=== PATIENT | female | born 1945 | race Caucasian/White ===

== ENCOUNTER 2019-09-09 11:42 | Inpatient (IN) | payer MEDICARE ==
[~2019-09-09] VITALS: Ht 152.4 cm; Wt 74.6 kg
--- NOTE | 2019-09-09 11:58 | NUR ---
Dr. Ray at bedside.
[2019-09-09] MEDS ORDERED: ipratropium/albuterol 3ml nebule ONE (11:59)
[2019-09-09] MEDS ORDERED: methylPREDNISolone sod succ 125mg/2ml vial IV ONE (12:00)
[2019-09-09] MEDS ORDERED: ipratropium/albuterol 3ml nebule NEB ONE (12:00)
[2019-09-09 12:05] LABS: MEAN CORPUSCULAR HEMOGLOBIN 15.8 PG (27.0-31.0); MEAN CORPUSCULAR HGB CONC 28.7 g/dL (33.0-36.5); MEAN PLATELET VOLUME 8.8 FL (7.4-10.4); PLATELET COUNT 633 X10'3 (140-440); WHITE BLOOD COUNT 9.6 X10'3 (4.5-11.0)
[2019-09-09 12:09] LABS: HEMOGLOBIN 6.3 g/dl (12.0-16.0)
[2019-09-09] MEDS ORDERED: albuterol 2.5 MG/3 ML nebule CONTNEB PRN (12:25)
[2019-09-09 12:27] LABS: PLATELET ESTIMATE INCREASED; TOTAL CELLS COUNTED 100
[2019-09-09 12:28] LABS: ALANINE AMINOTRANSFERASE 19 U/L (12-78); ALBUMIN/GLOBULIN RATIO 0.6 (1.1-1.5); ALKALINE PHOSPHATASE 244 IU/L (46-116); ANION GAP 17 (8-16); ANISOCYTOSIS 3+; ASPARTATE AMINO TRANSFERASE 19 U/L (10-37); BILIRUBIN,TOTAL 0.5 MG/DL (0.1-1.0); BLOOD UREA NITROGEN 32 MG/DL (7-18); BUN/CREATININE RATIO 17.9 (6.6-38.0); CHLORIDE 110 MMOL/L (99-107); CREATININE 1.79 MG/DL (0.40-0.90); GIANT PLATELET FEW; GLUCOSE 148 MG/DL (70-104); HYPOCHROMASIA 1+; MICROCYTOSIS 3+; POIKILOCYTOSIS 1+; POTASSIUM 3.6 MMOL/L (3.5-5.1); SODIUM 141 MMOL/L (135-145); eGFR 28 ML/MIN
[2019-09-09 12:29] LABS: LARGE PLATELETS MODERATE; POLYCHROMASIA FEW
[2019-09-09 12:30] LABS: TOTAL CARBON DIOXIDE 13.6 MMOL/L (24-32)
[2019-09-09 12:33] LABS: PARTIAL THROMBOPLASTIN TIME 32 SECONDS (22-32)
--- NOTE | 2019-09-09 12:54 | NUR ---
PT DAUGHTER CALLED RUTH ANN PACHECO [phone], STATED PT HAS BENINNGING STAGES OF DEMENTIA. PT LIVES WITH GRANDDAUGHTER ARGENIS PACHECO [phone]. PT AGREES TO GIVE INFOR TO BOTH DAUGHTER AND GRANDAUGHTER WHEN THEY CALL. DAUGHTER REQUESTS TO HAVE DC WITH HOME NEBULIZER. WILL PASS ON TO PRIMARY NURSE.
[2019-09-09] MEDS ORDERED: ASPI-1264 PO (12:58)
--- NOTE | 2019-09-09 13:19 | NUR ---
PAGED RT FOR ABG [phone]
[2019-09-09] MEDS ORDERED: pantoprazole 40 MG vial IV ONE (13:20)
[2019-09-09 13:47] LABS: OCCULT BLOOD STOOL POSITIVE (Neg)
[2019-09-09 13:51] LABS: ABG BASE EXCESS -13.9 mmol/L (-2.0-3.0); ABG HCO3 9.2 mmol/L (22.0-26.0); ABG OXYGEN SATURATION 98.1 % (95-98); ABG PCO2 (T) 14.6 mmHg (35.0-45.0); ABG PO2 (T) 112.5 mmHg (83-108); ALLEN'S TEST POSITIVE; FCOHb 1.1 % (0.5-1.5); FMetHb 0.2 % (0.3-1.12); FO2Hb 96.8 % (94-100); TOTAL HEMOGLOBIN 6.7 G/dl (12.0-16.0)
[2019-09-09] MEDS ORDERED: albuterol 2.5 MG/3 ML nebule NEB PRN (14:10)
[2019-09-09] MEDS ORDERED: ondansetron/PF 4mg/2ml inj IV PRN (14:10)
[2019-09-09] MEDS ORDERED: potassium CL 10mEq/100ml bag 100 ML IV PRN ×2 (14:10)
[2019-09-09] MEDS ORDERED: potassium Cl 20 mEq SR tablet PO PRN ×2 (14:10)
[2019-09-09] MEDS ORDERED: magnesium 2GM in 50ml NS 50 ML IV PRN (14:10)
[2019-09-09] MEDS ORDERED: magnesium 4gm in 100ml NS 100 ML IV PRN (14:10)
[2019-09-09] MEDS ORDERED: magnesium Cl slow-release 64mg tablet PO PRN (14:10)
[2019-09-09 14:28] VITALS: BP 119/97
[2019-09-09 14:54] VITALS: BP 130/56
[2019-09-09 15:54] VITALS: BP 107/87
[2019-09-09] MEDS: normal saline 1000ml 1,000 ML IV SCH (15:57)
--- NOTE | 2019-09-09 16:24 | NUR ---
RESPIRATORY PAGED 2ND TIME
[2019-09-09] MEDS: albuterol 2.5 MG/3 ML nebule NEB PRN (16:32)
[2019-09-09] MEDS ORDERED: levalbuterol 0.63mg/3ml nebule IH PRN (16:50)
[2019-09-09 16:54] VITALS: BP 161/77
--- NOTE | 2019-09-09 17:29 | NUR ---
JUANAGRAY OROS [phone] has the original advance directive for the pt, she said that she gave a copy to someone at the front attendant. she is not the pt's daughter just a friend.
[2019-09-09] MEDS: LORazepam 2 mg/ml vial IV PRN ×2 (17:42→22:27)
--- NOTE | 2019-09-09 17:53 | NUR ---
Pt still with increased work of breathing, sats 97% on RA. Ativan 1mg given. Pt is refusing her breathing treatment, keeps taking it off. Spoke to Dr Muñiz, stated to put pt on Bipap. Respiratory paged.
[2019-09-09 18:00] VITALS: BP 159/78
[2019-09-09] MEDS ORDERED: furosemide 40mg/4ml inj ONE (18:44)
[2019-09-09] MEDS ORDERED: furosemide 20 MG/2 ML vial IV ONE ×2 (18:45→19:10)
--- NOTE | 2019-09-09 18:59 | NUR ---
Rapid reponse called due to increased work of breathing, tachycardia, tachypnea.
--- NOTE | 2019-09-09 18:59 | NUR ---
Problems reprioritized. Patient report given, questions answered & plan of care reviewed with Allie.
[2019-09-09] MEDS ORDERED: morphine 2 MG/ML inj. syringe IV ONE (19:10)
[2019-09-09] MEDS ORDERED: morphine 4 MG/ML inj SYRINge ONE (19:11)
[2019-09-09 19:26] LABS: ABG BASE EXCESS -17.2 mmol/L (-2.0-3.0); ABG HCO3 9.4 mmol/L (22.0-26.0); ABG OXYGEN SATURATION 98.3 % (95-98); ABG PCO2 (T) 25.7 mmHg (35.0-45.0); ABG PO2 (T) 147.8 mmHg (83-108); ALLEN'S TEST POSITIVE; FMetHb 0.4 % (0.3-1.12); FO2Hb 97.9 % (94-100); PATIENT TEMPERATURE 37.6; RESPIRATORY RATE 12 b/min; TOTAL HEMOGLOBIN 8.6 G/dl (12.0-16.0)
[2019-09-09] MEDS: levalbuterol 0.63mg/3ml nebule IH SCH ×2 (19:46→23:25)
[2019-09-09] MEDS: budesonide 0.5mg/2ml UD nebule IH SCH (19:46)
[2019-09-09] MEDS: K and/or MAG REPLACEMENT MC SCH (20:00)
[2019-09-09] MEDS ORDERED: methylPREDNISolone sod succ/PF 40mg inj. IV ONE (20:00)
[2019-09-09] MEDS ORDERED: levalbuterol 0.63mg/3ml nebule IH SCH (20:00)
[2019-09-09 20:35] LABS: HEMATOCRIT 26.1 % (35.0-45.0); MEAN CORPUSCULAR HGB CONC 30.5 g/dL (33.0-36.5); MEAN CORPUSCULAR VOLUME 59.1 FL (78-98); PLATELET COUNT 609 X10'3 (140-440); RED BLOOD COUNT 4.42 X10'6 (4.20-5.60); RED CELL DISTRIBUTION WIDTH 29.7 % (11.5-14.5); WHITE BLOOD COUNT 19.7 X10'3 (4.5-11.0)
[2019-09-09 20:49] LABS: % IRON SATURATION 2 % (11-46); IRON 8 UG/DL (49-151); TOTAL IRON BINDING CAPACITY 445 UG/DL (259-388)
[2019-09-09 20:55] LABS: ABG BASE EXCESS -16.4 mmol/L (-2.0-3.0); ABG HCO3 8.8 mmol/L (22.0-26.0); ABG OXYGEN SATURATION 97.3 % (95-98); ABG PO2 (T) 111.1 mmHg (83-108); ALLEN'S TEST POSITIVE; FMetHb 0.3 % (0.3-1.12); PATIENT TEMPERATURE 37.2; RESPIRATORY RATE 18 b/min; TOTAL HEMOGLOBIN 8.4 G/dl (12.0-16.0)
[2019-09-09] MEDS ORDERED: sodium bicarbonate (8.4%) 1 mEq/ml syringe IV ONE (21:05)
--- NOTE | 2019-09-09 21:05 | NUR ---
PAGER ID: [phone] MESSAGE: Sveta Diaz 73P 6331D pt admitted with SOB/anemia, pt new ABG bicarb 8.8 and CO2 19.8 which are both down from the one drawn at 1900 bicarb 9.4 and CO2 25, what do you think about giving bicarb? thank you Allie CARY 8416
--- NOTE | 2019-09-09 21:32 | NUR ---
PAGER ID: [phone] MESSAGE: Sveta Hughes 73F admitted with anemia, SOB pt family mentioned possible aspirin OD, can I get a tox screen and CT head for possible brain bleeding please? thank you Allie del castillo [phone]
[2019-09-09 22:00] VITALS: BP 143/86
--- NOTE | 2019-09-09 22:10 | NUR ---
PAGER ID: [phone] MESSAGE: Sveta Ellen 73F admitted with anemia/SOB you ordered bicarb amp did you want bicarb GTT and for ingestion error for aspirin salicylate for labs please? thank you Allie del castillo [phone]
[2019-09-09] MEDS: sodium bicarbonate (8.4%) inj. 50 MEQ in dextrose 5%-water 1,000 ML IV SCH (22:52)
--- NOTE | 2019-09-09 23:57 | NUR ---
PAGER ID: [phone] MESSAGE: Sveta Diaz 73F admitted with anemia/SOB salicylate is 47.7 which is doubled indicating she OD on aspiration, also her trop came back 0.92. thank you Allie CARY 6343
[2019-09-10] VITALS (9 sets, daily range): BP systolic 99–138; BP diastolic 48–82
--- NOTE | 2019-09-10 00:22 | NUR ---
PAGER ID: [phone] MESSAGE: Sveta Diaz 73F called and discussed situation with posion control, they stated to do salicylate lab every two hours along with running 40meq of K. thank you Allie del castillo 2129
[2019-09-10] MEDS: Potassium Cl inj 40 MEQ in normal saline 1000ml 980 ML IV SCH ×2 (01:19→11:36)
[2019-09-10 02:26] LABS: BASOPHILS # (AUTO) 0.1 X10'3 (0-0.2); BASOPHILS % (AUTO) 0.3 % (0-1); EOSINOPHILS % (AUTO) 0.1 % (0-6); HEMATOCRIT 23.9 % (35.0-45.0); HEMOGLOBIN 7.2 g/dl (12.0-16.0); LYMPHOCYTES # (AUTO) 0.4 X10'3 (1.1-4.8); LYMPHOCYTES % (AUTO) 1.7 % (21-51); MEAN CORPUSCULAR HEMOGLOBIN 18.3 PG (27.0-31.0); MEAN CORPUSCULAR VOLUME 60.9 FL (78-98); MONOCYTES # (AUTO) 1.6 X10'3 (0-0.9); MONOCYTES % (AUTO) 7.1 % (2-12); NEUTROPHILS # (AUTO) 20.5 X10'3 (1.8-7.7); NEUTROPHILS % (AUTO) 90.8 % (42-75); PLATELET COUNT 541 X10'3 (140-440); RED BLOOD COUNT 3.92 X10'6 (4.20-5.60); RED CELL DISTRIBUTION WIDTH 30.6 % (11.5-14.5); WHITE BLOOD COUNT 22.5 X10'3 (4.5-11.0)
[2019-09-10 02:31] LABS: ALBUMIN 2.7 G/DL (3.4-5.0); ANION GAP 21 (8-16); BLOOD UREA NITROGEN 43 MG/DL (7-18); BUN/CREATININE RATIO 16.9 (6.6-38.0); CALCIUM 7.1 MG/DL (8.5-10.1); CHLORIDE 107 MMOL/L (99-107); CREATININE 2.54 MG/DL (0.40-0.90); GLUCOSE 350 MG/DL (70-104); MAGNESIUM 2.5 MG/DL (1.5-2.4); POTASSIUM 4.4 MMOL/L (3.5-5.1); SODIUM 141 MMOL/L (135-145); eGFR 18 ML/MIN
--- NOTE | 2019-09-10 02:38 | NUR ---
PAGER ID: [phone] MESSAGE: Sveta Emily 73S 5052I salicylate is trending now was 47.7 now 44.4, Hemoglobin on the other hand was 8.0 at 1999 last night and is now 7.2, and this is after receiving 1 unit RBC yesterday thank you Allie del castillo [phone]
--- NOTE | 2019-09-10 02:45 | NUR ---
promotional table spacer PAGER ID: [phone] MESSAGE: Sveta Diaz 73P 3014L CO2 on chem panel is 13 thank you Allie del castillo [phone]
[2019-09-10] MEDS: levalbuterol 0.63mg/3ml nebule IH SCH ×6 (02:49→22:41)
--- NOTE | 2019-09-10 03:32 | NUR ---
promotional table spacer PAGER ID: [phone] MESSAGE: Can you please call me referring pt Sveta Hughes 8043C thank you Allie del castillo [phone]
[2019-09-10 04:35] LABS: MICROCYTOSIS 2+; PLATELET ESTIMATE INCREASED; POLYCHROMASIA 1+; TOTAL CELLS COUNTED 100
[2019-09-10 04:36] LABS: LARGE PLATELETS MODERATE
[2019-09-10 04:37] LABS: ANISOCYTOSIS 3+; POIKILOCYTOSIS FEW
[2019-09-10 04:38] LABS: ELLIPTOCYTES FEW; HYPOCHROMASIA 2+; TEAR DROP CELLS FEW
[2019-09-10 05:23] LABS: HEMATOCRIT 22.6 % (35.0-45.0); MEAN CORPUSCULAR HEMOGLOBIN 17.8 PG (27.0-31.0); MEAN CORPUSCULAR HGB CONC 29.7 g/dL (33.0-36.5); MEAN CORPUSCULAR VOLUME 59.8 FL (78-98); MEAN PLATELET VOLUME 8.9 FL (7.4-10.4); PLATELET COUNT 480 X10'3 (140-440); RED BLOOD COUNT 3.79 X10'6 (4.20-5.60); RED CELL DISTRIBUTION WIDTH 30.5 % (11.5-14.5); WHITE BLOOD COUNT 21.4 X10'3 (4.5-11.0)
[2019-09-10 05:32] LABS: HEMOGLOBIN 6.7 g/dl (12.0-16.0)
--- NOTE | 2019-09-10 05:34 | NUR ---
PAGER ID: [phone] MESSAGE: Sveta Emily 22 6123B Hemoglobin 6.7 thank you Allie CARY 6381
--- NOTE | 2019-09-10 06:38 | NUR ---
Patient in room PCU 3009. I have received report from Allie CARY and had the opportunity to ask questions and assume patient care.
[2019-09-10] MEDS: budesonide 0.5mg/2ml UD nebule IH SCH ×2 (07:07→20:05)
[2019-09-10] MEDS: K and/or MAG REPLACEMENT MC SCH ×2 (08:10→20:00)
[2019-09-10] MEDS ORDERED: fentaNYL/PF 50MCG/1 ML 2ML syringe ONE (08:48)
[2019-09-10] MEDS ORDERED: LIDOcaine Viscous 15ml cup ONE (08:48)
[2019-09-10] MEDS ORDERED: MIDAZolam 5mg/5ml vial ONE (08:48)
--- NOTE | 2019-09-10 08:57 | NUR ---
Page to Mary Kay ID: [phone] MESSAGE: Bessy MARYLOU. Patient Diaz 3009. Troponin bryan to 0.92, can she still go to GI lab for EGD? Please advise
--- NOTE | 2019-09-10 09:50 | NUR ---
ID: [phone] MESSAGE: Bessy MARYLOU. Patient Diaz 3009. Troponin bryan to 0.92, can she still go to GI lab for EGD? Please advise
[2019-09-10] MEDS: sodium bicarbonate (8.4%) inj. 50 MEQ in dextrose 5%-water 1,000 ML IV SCH ×2 (10:06→20:30)
[2019-09-10] MEDS ORDERED: levoFLOXACIN-Levaquin 500mg/D5 100 ML IV SCH (10:50)
[2019-09-10 11:17] LABS: HEMATOCRIT 24.2 % (35.0-45.0); HEMOGLOBIN 7.2 g/dl (12.0-16.0); MEAN CORPUSCULAR HEMOGLOBIN 18.7 PG (27.0-31.0); MEAN CORPUSCULAR HGB CONC 29.8 g/dL (33.0-36.5); MEAN CORPUSCULAR VOLUME 62.6 FL (78-98); MEAN PLATELET VOLUME 8.8 FL (7.4-10.4); PLATELET COUNT 487 X10'3 (140-440); RED BLOOD COUNT 3.87 X10'6 (4.20-5.60); RED CELL DISTRIBUTION WIDTH 32.8 % (11.5-14.5); WHITE BLOOD COUNT 21.3 X10'3 (4.5-11.0)
--- NOTE | 2019-09-10 12:02 | NUR ---
Phone call from Poison control. Recommend to continue ASA level checks q2h until reaches 30, then can D/C bicarb and move to NS. Will continue to monitor.
--- NOTE | 2019-09-10 12:26 | NUR ---
Page to VIRIDIANA PAGER ID: [phone] MESSAGE: Bessy HICKMAN 6219. Patient Diaz 3009. Did you want this patient on Protonix? Saw in your note, but its been D/Cd. Please advise.
--- NOTE | 2019-09-10 12:27 | NUR ---
New orders from Mary Kay, Protonix 40mg BID
--- NOTE | 2019-09-10 12:41 | NUR ---
Page to VIRIDIANA PAGER ID: [phone] MESSAGE: Bessy MARYLOU 6242. Patient Diaz 6619. The solumedrol also was D/C' looks like. Did you want her to have it?
[2019-09-10] MEDS: pantoprazole 40 MG vial IV SCH ×2 (12:46→20:30)
--- NOTE | 2019-09-10 13:48 | NUR ---
New order from Dr. Muñiz: Solumedrol 40 mg BID to start now
[2019-09-10] MEDS: methylPREDNISolone sod succ/PF 40mg inj. IV SCH ×2 (14:03→20:49)
[2019-09-10 17:09] LABS: HEMATOCRIT 25.6 % (35.0-45.0); HEMOGLOBIN 7.9 g/dl (12.0-16.0); MEAN CORPUSCULAR HEMOGLOBIN 19.6 PG (27.0-31.0); MEAN CORPUSCULAR HGB CONC 30.9 g/dL (33.0-36.5); MEAN CORPUSCULAR VOLUME 63.5 FL (78-98); MEAN PLATELET VOLUME 9.2 FL (7.4-10.4); PLATELET COUNT 479 X10'3 (140-440); RED BLOOD COUNT 4.03 X10'6 (4.20-5.60); RED CELL DISTRIBUTION WIDTH 34.5 % (11.5-14.5); WHITE BLOOD COUNT 22.1 X10'3 (4.5-11.0)
--- NOTE | 2019-09-10 18:35 | NUR ---
Problems reprioritized. Patient report given, questions answered & plan of care reviewed with Maggi CARY. Patient stable at transfer of care.
--- NOTE | 2019-09-10 18:35 | NUR ---
Patient in room PCU 3009. I have received report from Hali, and had the opportunity to ask questions and assume patient care.
--- NOTE | 2019-09-10 18:35 | NUR ---
Page to JAN PAGER ID: [phone] MESSAGE: Bessy HICKMAN 4853. Patient Aguilar 3015B. Patient's BP is 197/71. Will give PM Coreg at 1900 per order.
--- NOTE | 2019-09-10 18:36 | NUR ---
Problems reprioritized. Patient report given, questions answered & plan of care reviewed with Ajay CARY. Patient stable at transfer of care.
--- NOTE | 2019-09-10 19:04 | NUR ---
PAGER ID: [phone] MESSAGE: Sveta Diaz 73 F Rm 3004, admitted for COPD exacerbation w hx of COPD, smoker, s/p 2PRBC transfusion in the last 2 days, with Hemoglobin of 7.9. Salicylates overdose ( level is 30.3), EGD Cancelled. Needs diet. Huy pcu-[id number]
--- NOTE | 2019-09-10 19:33 | NUR ---
PAGER ID: [phone] MESSAGE: Sveta Diaz 73 F Rm 3008, admitted for COPD. Patient's salicylates level is 28.3. K level is 4.4. CO2 level is 13.0 on 3L NC O@. Possible EGD tomorrow. NPO@ MN? Salicylates check q2hr, Continue? on KCl IV, Continue? Huy [id number]-[id number] Addendum: 09/10/19 at 1947 by Ajay Esquivel RN Dr. Crook called back and ordered to stop the KCL IV, and recheck the salicylate level q 6hr. NPO after midnight for possible EGD.
--- NOTE | 2019-09-10 21:22 | NUR ---
PAGER ID: [phone] MESSAGE: Sveta Diaz 73 F Rm 3001, admitted for COPD. Patient's salicylates level is 28.3. Poison control called and want her off sodium bicarb, She is on NS at 20ml/hr. Do you want to change IVF rate and DC Sodium Bicarb? Huy PCU 5441 Addendum: 09/10/19 at 2128 by Ajay Esquivel RN Dr. Crook called back, and ordered to DC the Sodium bicarbonate drip and change the patients NS from 20 ml/hr to 75 ml/hr. No other orders were given at this time.
--- NOTE | 2019-09-10 22:26 | NUR ---
paged RT: Sveta Diaz 73 F Rm 5860. SOB in mid 80's. Asking for RT treatment and to be put on BiPAP ANN-MARIE.
[2019-09-10] MEDS: normal saline 1000ml 1,000 ML IV SCH (22:33)
--- NOTE | 2019-09-10 22:49 | NUR ---
patient noncompliant to get orthostatic vitals at this time. Will try to get at 0200. Patient is getting breathing treatment, O2 sat at 92 right now. RT at the bedside. Patient Start on BiPAP.
[2019-09-10] MEDS: LORazepam 2 mg/ml vial IV PRN (23:16)
[2019-09-10 23:35] LABS: HEMATOCRIT 27.7 % (35.0-45.0); HEMOGLOBIN 8.4 g/dl (12.0-16.0); MEAN CORPUSCULAR HEMOGLOBIN 19.3 PG (27.0-31.0); MEAN CORPUSCULAR HGB CONC 30.2 g/dL (33.0-36.5); MEAN PLATELET VOLUME 8.8 FL (7.4-10.4); PLATELET COUNT 529 X10'3 (140-440); RED BLOOD COUNT 4.33 X10'6 (4.20-5.60); RED CELL DISTRIBUTION WIDTH 34.8 % (11.5-14.5); WHITE BLOOD COUNT 22.7 X10'3 (4.5-11.0)
[2019-09-10 23:46] LABS: ALBUMIN 2.5 G/DL (3.4-5.0); ANION GAP 17 (8-16); BLOOD UREA NITROGEN 35 MG/DL (7-18); BUN/CREATININE RATIO 21.1 (6.6-38.0); CALCIUM 8.4 MG/DL (8.5-10.1); CHLORIDE 113 MMOL/L (99-107); CREATININE 1.66 MG/DL (0.40-0.90); GLUCOSE 170 MG/DL (70-104); POTASSIUM 3.9 MMOL/L (3.5-5.1); SODIUM 145 MMOL/L (135-145); eGFR 30 ML/MIN
[2019-09-10 23:52] LABS: TOTAL CARBON DIOXIDE 14.6 MMOL/L (24-32)
--- NOTE | 2019-09-10 23:53 | NUR ---
Patient is noncompliant with BiPAP. Taking it off without calling us. Charge Nurse-An is aware of the issue.
--- NOTE | 2019-09-10 23:57 | NUR ---
RT paged: Emily Bangura 45h [phone] @[facility]. Noncompliant with BiPAP. SOB, may need high flow NC.
--- NOTE | 2019-09-11 00:16 | NUR ---
PAGER ID: [phone] MESSAGE: Sveta Diaz 73 F Rm 3000, admitted for COPD exacerbation w hx of COPD, smoker. Has a Critical CO2 value of 14.6, perv one was 13.0. Salicylate level is 25.6, perv one was 28.3. Huy pcu-7125
--- NOTE | 2019-09-11 01:00 | NUR ---
PAGER ID: [phone] MESSAGE: Sveta Diaz 73 F Rm 3007, admitted for COPD exacerbation w hx of COPD, smoker with CO2 14.6. Has unstable O2 Sat between 76--86. Pt. refused the BiPAP. On 5L O2 NC.1mg Atvian given earlier. Recommendation? AOx4. Huy, PCU-[id number]
[2019-09-11] MEDS ORDERED: LORazepam 2 mg/ml vial IV ONE (01:25)
[2019-09-11 02:00] VITALS: BP 147/88
--- NOTE | 2019-09-11 02:04 | NUR ---
Patient is alert, oriented x4, but noncompliant and does not follow commands. takes off the NC, still restless despite giving her 1mg ativan. Dr. Crook is aware the issue.
[2019-09-11] MEDS: levalbuterol 0.63mg/3ml nebule IH SCH ×3 (04:08→11:01)
--- NOTE | 2019-09-11 04:28 | NUR ---
Patient received breathing treatment. On BiPAP with FIO2 of 35. feeling better. Not complaining of any pain at this time.
--- NOTE | 2019-09-11 05:34 | NUR ---
Patient on BiPAP with FIO2 of 35. Resting at this time, not on any distress or pain.
[2019-09-11 06:16] LABS: BASOPHILS # (AUTO) 0.1 X10'3 (0-0.2); BASOPHILS % (AUTO) 0.6 % (0-1); EOSINOPHILS % (AUTO) 0 % (0-6); HEMATOCRIT 28.8 % (35.0-45.0); HEMOGLOBIN 8.6 g/dl (12.0-16.0); LYMPHOCYTES % (AUTO) 24.8 % (21-51); MEAN CORPUSCULAR HEMOGLOBIN 19.4 PG (27.0-31.0); MEAN CORPUSCULAR VOLUME 64.4 FL (78-98); MEAN PLATELET VOLUME 8.6 FL (7.4-10.4); MONOCYTES # (AUTO) 0.8 X10'3 (0-0.9); MONOCYTES % (AUTO) 3.4 % (2-12); NEUTROPHILS # (AUTO) 17.2 X10'3 (1.8-7.7); NEUTROPHILS % (AUTO) 71.2 % (42-75); PLATELET COUNT 548 X10'3 (140-440); RED BLOOD COUNT 4.47 X10'6 (4.20-5.60); RED CELL DISTRIBUTION WIDTH 35.2 % (11.5-14.5); WHITE BLOOD COUNT 24.2 X10'3 (4.5-11.0)
--- NOTE | 2019-09-11 06:17 | NUR ---
Problems reprioritized. Patient report given to Hali, questions answered & plan of care reviewed with .
[2019-09-11 06:27] LABS: ALBUMIN 2.5 G/DL (3.4-5.0); ANION GAP 16 (8-16); BLOOD UREA NITROGEN 33 MG/DL (7-18); BUN/CREATININE RATIO 22.4 (6.6-38.0); CHLORIDE 115 MMOL/L (99-107); CREATININE 1.47 MG/DL (0.40-0.90); GLUCOSE 154 MG/DL (70-104); MAGNESIUM 2.5 MG/DL (1.5-2.4); POTASSIUM 4.2 MMOL/L (3.5-5.1); SODIUM 147 MMOL/L (135-145); TOTAL CARBON DIOXIDE 15.8 MMOL/L (24-32); eGFR 35 ML/MIN
--- NOTE | 2019-09-11 06:35 | NUR ---
Patient in room PCU 3009. I have received report from Ajay CARY and had the opportunity to ask questions and assume patient care.
[2019-09-11 07:06] VITALS: BP 141/82
--- NOTE | 2019-09-11 07:25 | NUR ---
Patient o2 levels dropped to 59% on 5 L, Put on bipap 40% and O2 bryan to 89%. Paged RT to adjust settingson bipap. Will continue to monitor closely.
[2019-09-11] MEDS: pantoprazole 40 MG vial IV SCH ×2 (07:39→20:55)
[2019-09-11] MEDS: methylPREDNISolone sod succ/PF 40mg inj. IV SCH ×2 (07:39→20:55)
[2019-09-11] MEDS: K and/or MAG REPLACEMENT MC SCH ×2 (07:40→19:10)
[2019-09-11] MEDS: budesonide 0.5mg/2ml UD nebule IH SCH ×2 (07:49→19:11)
[2019-09-11 09:10] LABS: ANISOCYTOSIS 3+; LARGE PLATELETS FEW; MICROCYTOSIS 2+; PLATELET ESTIMATE INCREASED
[2019-09-11 09:11] LABS: POLYCHROMASIA FEW
[2019-09-11] MEDS: normal saline 1000ml 1,000 ML IV SCH ×2 (09:24→20:57)
[2019-09-11] MEDS: levalbuterol 1.25mg/0.5ml nebule IH SCH ×4 (12:00→23:06)
--- NOTE | 2019-09-11 12:28 | NUR ---
PAGER ID: [phone] MESSAGE: Bessy HICKMAN 5441. Patient Diaz 3009. Critical troponin 0.99.
--- NOTE | 2019-09-11 17:17 | NUR ---
PAGE TO VIRIDIANA PAGER ID: [phone] MESSAGE: Bessy MARYLOU [phone]. Patient Diaz 5419. POA would like to speak with you over the phone about plan of care. Zackary Jacobs [phone]
[2019-09-11 18:00] VITALS: BP 128/68
--- NOTE | 2019-09-11 18:28 | NUR ---
Problems reprioritized. Patient report given, questions answered & plan of care reviewed with Trinity CARY. Patient stable on bipap 40% FiO2 sating 92% at transfer of care.
--- NOTE | 2019-09-11 18:30 | NUR ---
Patient in room PCU 3009. I have received report from Bessy CARY and had the opportunity to ask questions and assume patient care.
[2019-09-11 19:09] LABS: HEMATOCRIT 29.9 % (35.0-45.0); HEMOGLOBIN 9.3 g/dl (12.0-16.0); MEAN CORPUSCULAR HEMOGLOBIN 20.3 PG (27.0-31.0); MEAN CORPUSCULAR HGB CONC 30.9 g/dL (33.0-36.5); MEAN CORPUSCULAR VOLUME 65.5 FL (78-98); PLATELET COUNT 433 X10'3 (140-440); RED BLOOD COUNT 4.57 X10'6 (4.20-5.60); RED CELL DISTRIBUTION WIDTH 33.7 % (11.5-14.5)
[2019-09-11 19:25] LABS: WHITE BLOOD COUNT 19.5 X10'3 (4.5-11.0)
[2019-09-11 20:00] VITALS: BP_SYST 110; BP_SYST 166; BP_DIAS 81; BP_DIAS 91
[2019-09-11] MEDS: lactobacillus rhamnosus 10,000 MMU CELLS/CAPSULE PO SCH (20:55)
[2019-09-11] MEDS: levoFLOXACIN-Levaquin 250mg/D5 50 ML IV SCH (20:56)
[2019-09-11 22:00] VITALS: BP 110/91
--- NOTE | 2019-09-11 22:30 | NUR ---
Attempted orthostatic vitals are were able to getting supine and sitting but patient was unable to stand due to weakness and she also started desating from the exertion of sitting up.
[2019-09-12] VITALS (10 sets, daily range): BP systolic 150–181; BP diastolic 81–114
[2019-09-12] MEDS: acetaminophen 325mg tablet PO PRN ×2 (00:52→19:38)
[2019-09-12] MEDS: levalbuterol 1.25mg/0.5ml nebule IH SCH ×6 (03:18→23:10)
--- NOTE | 2019-09-12 06:47 | NUR ---
Problems reprioritized. Patient report given, questions answered & plan of care reviewed with Bessy CARY.
[2019-09-12 06:58] LABS: HEMOGLOBIN 8.3 g/dl (12.0-16.0)
--- NOTE | 2019-09-12 06:58 | NUR ---
Patient in room PCU 3009. I have received report from Trinity CARY and had the opportunity to ask questions and assume patient care.
[2019-09-12 07:02] LABS: BASOPHILS % (AUTO) 0.2 % (0-1); EOSINOPHILS % (AUTO) 0.2 % (0-6); HEMATOCRIT 27.4 % (35.0-45.0); LYMPHOCYTES # (AUTO) 0.1 X10'3 (1.1-4.8); LYMPHOCYTES % (AUTO) 0.7 % (21-51); MEAN CORPUSCULAR HEMOGLOBIN 19.8 PG (27.0-31.0); MEAN CORPUSCULAR HGB CONC 30.2 g/dL (33.0-36.5); MEAN CORPUSCULAR VOLUME 65.7 FL (78-98); MONOCYTES # (AUTO) 1.3 X10'3 (0-0.9); MONOCYTES % (AUTO) 7.1 % (2-12); NEUTROPHILS # (AUTO) 17.3 X10'3 (1.8-7.7); NEUTROPHILS % (AUTO) 91.8 % (42-75); PLATELET COUNT 493 X10'3 (140-440); RED BLOOD COUNT 4.17 X10'6 (4.20-5.60); RED CELL DISTRIBUTION WIDTH 34.9 % (11.5-14.5); WHITE BLOOD COUNT 18.8 X10'3 (4.5-11.0)
[2019-09-12 07:12] LABS: ALBUMIN 2.3 G/DL (3.4-5.0); ANION GAP 14 (8-16); BLOOD UREA NITROGEN 34 MG/DL (7-18); BUN/CREATININE RATIO 23.4 (6.6-38.0); CALCIUM 9.1 MG/DL (8.5-10.1); CHLORIDE 116 MMOL/L (99-107); CREATININE 1.45 MG/DL (0.40-0.90); GLUCOSE 137 MG/DL (70-104); MAGNESIUM 2.5 MG/DL (1.5-2.4); POTASSIUM 4.4 MMOL/L (3.5-5.1); SODIUM 148 MMOL/L (135-145); TOTAL CARBON DIOXIDE 17.7 MMOL/L (24-32); eGFR 35 ML/MIN
--- NOTE | 2019-09-12 07:27 | NUR ---
Patient in room PCU 3009. I have received report from Bessy and had the opportunity to ask questions and assume patient care.
[2019-09-12] MEDS: budesonide 0.5mg/2ml UD nebule IH SCH ×2 (07:31→19:11)
[2019-09-12] MEDS: K and/or MAG REPLACEMENT MC SCH ×2 (07:42→20:00)
[2019-09-12] MEDS: lactobacillus rhamnosus 10,000 MMU CELLS/CAPSULE PO SCH ×2 (07:43→21:38)
[2019-09-12] MEDS: methylPREDNISolone sod succ/PF 40mg inj. IV SCH ×3 (07:43→21:38)
[2019-09-12] MEDS: pantoprazole 40 MG vial IV SCH ×2 (07:43→21:38)
[2019-09-12 09:14] LABS: ANISOCYTOSIS 3+; MICROCYTOSIS 2+; PLATELET ESTIMATE INCREASED
[2019-09-12 09:15] LABS: HYPOCHROMASIA 1+; POLYCHROMASIA 1+
--- NOTE | 2019-09-12 10:43 | NUR ---
Last bowel movement given on report was 09/09/19 Addendum: 09/12/19 at 1050 by Bibi MONTANEZ Amended: Links added.
--- NOTE | 2019-09-12 11:12 | NUR ---
Page to Mary Kay PAGER ID: [phone] MESSAGE: Bessy MARYLOU 5307. Patient 3009. BP elevated 169/90. No home cardiac meds, please advise.
[2019-09-12] MEDS ORDERED: SODIUM BICARBONATE IV ONE (12:50)
[2019-09-12] MEDS ORDERED: POTASSIUM CL IV ONE (12:50)
[2019-09-12] MEDS ORDERED: [UNRECOGNIZED DRUG - OTHER] IV ONE (12:50)
--- NOTE | 2019-09-12 13:05 | NUR ---
Page to VIRIDIANA PAGER ID: [phone] MESSAGE: Bessy HICKMAN 8858. Patient Emily 3409. POA requests COVID test. Please advise
[2019-09-12] MEDS ORDERED: hydrALAZINE 20mg/ml inj. IV PRN ×2 (13:10)
--- NOTE | 2019-09-12 13:13 | NUR ---
New order from Dr Muñiz. Hydralazine 5 mg q6 PRN for SBP>150, 10 mg q6 PRN for SBP >160
[2019-09-12 13:20] LABS: ABG BASE EXCESS -8.4 mmol/L (-2.0-3.0); ABG HCO3 15.4 mmol/L (22.0-26.0); ABG OXYGEN SATURATION 87.9 % (95-98); ABG PCO2 (T) 26.4 mmHg (35.0-45.0); ALLEN'S TEST POSITIVE; FCOHb 0.1 % (0.5-1.5); FMetHb 0.2 % (0.3-1.12); FO2Hb 87.6 % (94-100); RESPIRATORY RATE 18 b/min; TOTAL HEMOGLOBIN 9.1 G/dl (12.0-16.0)
[2019-09-12] MEDS: LORazepam 2 mg/ml vial IV PRN ×2 (13:41→20:56)
[2019-09-12 13:53] LABS: ALANINE AMINOTRANSFERASE 27 U/L (12-78); ALBUMIN 2.4 G/DL (3.4-5.0); ALBUMIN/GLOBULIN RATIO 0.5 (1.1-1.5); ALKALINE PHOSPHATASE 199 IU/L (46-116); ASPARTATE AMINO TRANSFERASE 31 U/L (10-37); BILIRUBIN,DIRECT 0.1 MG/DL (0-0.3); BILIRUBIN,TOTAL 0.3 MG/DL (0.1-1.0); TOTAL PROTEIN 6.8 G/DL (6.4-8.2)
[2019-09-12 13:55] LABS: ACETAMINOPHEN < 2.0 UG/ML (10-30)
--- NOTE | 2019-09-12 14:25 | NUR ---
Rapid response called, RR 35, BP 181/111, HR 140, patient tripoding and very anxious. ICU charge nurse at bedside. CXR obtained, new orders from Dr. Muñiz for 80 mg IV Lasix stat and 40 mg IV Lasix BID, 1 mg Ativan stat, and 60 mg Solu-medrol stat. Will continue to monitor closely.
--- NOTE | 2019-09-12 14:26 | NUR ---
Paged Dr. Muñiz: PAGER ID: [phone] MESSAGE: RE: Sveta Diaz 4140 Called Rapid response on patient. Patient is anxious and has already received 1 mg Ativan. do you want to increase dosage? CC charge lpn bedside. thank you. gio 6413
[2019-09-12] MEDS ORDERED: LORazepam 2 mg/ml vial IV ONE (14:35)
[2019-09-12] MEDS ORDERED: furosemide 40mg/4ml inj IV STA (14:43)
[2019-09-12] MEDS ORDERED: furosemide 10 MG/1 ML 10ml inj IV ONE (14:55)
[2019-09-12] MEDS ORDERED: furosemide 40mg/4ml inj IV ONE (15:00)
[2019-09-12 15:46] LABS: ABG BASE EXCESS -6.8 mmol/L (-2.0-3.0); ABG HCO3 16.5 mmol/L (22.0-26.0); ABG OXYGEN SATURATION 94.4 % (95-98); ABG PCO2 (T) 26.2 mmHg (35.0-45.0); ABG PO2 (T) 73.6 mmHg (83-108); ALLEN'S TEST POSITIVE; FCOHb 0.3 % (0.5-1.5); FMetHb 0.3 % (0.3-1.12); FO2Hb 93.8 % (94-100); RESPIRATORY RATE 18 b/min; TIDAL VOLUME 782 mL; TOTAL HEMOGLOBIN 9.8 G/dl (12.0-16.0)
--- NOTE | 2019-09-12 15:52 | NUR ---
New order for covid test per Dr Muñiz
[2019-09-12] MEDS ORDERED: levoFLOXACIN-Levaquin 500mg/D5 100 ML IV ONE (16:15)
[2019-09-12] MEDS ORDERED: CefTRIAXone/D5W-Rocephin 1gm 50 ML IV ONE (16:15)
[2019-09-12] MEDS ORDERED: sodium bicarbonate (8.4%) inj. 150 MEQ in dextrose 5%-water 1,000 ML IV SCH (16:20)
--- NOTE | 2019-09-12 16:22 | NUR ---
Patient to come to ICU after results of covid 19 [place] obtained Addendum: 09/12/19 at 1623 by Evelyn Castillo RN Amended: Links added.
--- NOTE | 2019-09-12 16:47 | NUR ---
Problems reprioritized. Patient report given, questions answered & plan of care reviewed with Declan CARY.
--- NOTE | 2019-09-12 16:47 | NUR ---
Covid test NEGATIVE
--- NOTE | 2019-09-12 16:48 | NUR ---
Patient transferred to ICU
[2019-09-12] MEDS: iron sucrose complex injection 200 MG in normal saline 100ml IV soln 100 ML IV SCH (19:17)
--- NOTE | 2019-09-12 21:15 | NUR ---
Sean from Poison control called, updated on current labs and patients current vitals. Agreed with current plan of care. Stated to call if there were any further questions.
[2019-09-12] MEDS: furosemide 40mg/4ml inj IV SCH (21:36)
--- NOTE | 2019-09-12 21:50 | NUR ---
Patient's POA Javy Jacobs called, requesting information on patient including lab results. Updated on patient's status but explained that nursing is unable to give out lab results and that information must be relayed by the MD. Notified POA that nursing will let MD know that she is requesting an update in the AM. POA is requesting to visit patient as well, extension service specialist in charge and PM Nursing spooling supervisor notified of request, will review in the AM. Vamp Presser consult ordered in regards to contacting patient's family as well as reviewing visitation eligibility of POA.
[2019-09-13] VITALS (22 sets, daily range): BP systolic 119–168; BP diastolic 65–86
[2019-09-13] MEDS: levalbuterol 1.25mg/0.5ml nebule IH SCH ×6 (03:03→23:17)
[2019-09-13] MEDS: methylPREDNISolone sod succ/PF 40mg inj. IV SCH ×4 (03:54→20:39)
[2019-09-13 04:16] LABS: ABG BASE EXCESS 2.7 mmol/L (-2.0-3.0); ABG HCO3 25.8 mmol/L (22.0-26.0); ABG OXYGEN SATURATION 95.8 % (95-98); ABG PCO2 (T) 33.5 mmHg (35.0-45.0); ALLEN'S TEST POSITIVE; FMetHb 0.2 % (0.3-1.12); FO2Hb 95.6 % (94-100); PATIENT TEMPERATURE 36.7; RESPIRATORY RATE 16 b/min
[2019-09-13] MEDS: normal saline 1000ml 1,000 ML IV SCH ×2 (04:25→23:44)
[2019-09-13 05:08] LABS: EOSINOPHILS % (AUTO) 0 % (0-6); HEMOGLOBIN 8.2 g/dl (12.0-16.0)
[2019-09-13 05:10] LABS: BASOPHILS # (AUTO) 0.1 X10'3 (0-0.2); BASOPHILS % (AUTO) 0.8 % (0-1); HEMATOCRIT 27.4 % (35.0-45.0); LYMPHOCYTES # (AUTO) 0.4 X10'3 (1.1-4.8); LYMPHOCYTES % (AUTO) 3.1 % (21-51); MEAN CORPUSCULAR HEMOGLOBIN 18.7 PG (27.0-31.0); MEAN CORPUSCULAR HGB CONC 29.9 g/dL (33.0-36.5); MEAN CORPUSCULAR VOLUME 62.6 FL (78-98); MEAN PLATELET VOLUME 8.6 FL (7.4-10.4); MONOCYTES # (AUTO) 0.6 X10'3 (0-0.9); MONOCYTES % (AUTO) 4.6 % (2-12); NEUTROPHILS # (AUTO) 12.1 X10'3 (1.8-7.7); NEUTROPHILS % (AUTO) 91.5 % (42-75); PLATELET COUNT 505 X10'3 (140-440); RED BLOOD COUNT 4.37 X10'6 (4.20-5.60); WHITE BLOOD COUNT 13.2 X10'3 (4.5-11.0)
[2019-09-13 05:24] LABS: ALANINE AMINOTRANSFERASE 23 U/L (12-78); ALBUMIN 2.5 G/DL (3.4-5.0); ALBUMIN/GLOBULIN RATIO 0.6 (1.1-1.5); ALKALINE PHOSPHATASE 190 IU/L (46-116); ANION GAP 13 (8-16); ASPARTATE AMINO TRANSFERASE 23 U/L (10-37); BILIRUBIN,TOTAL 0.3 MG/DL (0.1-1.0); BLOOD UREA NITROGEN 38 MG/DL (7-18); BUN/CREATININE RATIO 24.1 (6.6-38.0); CALCIUM 8.8 MG/DL (8.5-10.1); CHLORIDE 109 MMOL/L (99-107); CREATININE 1.58 MG/DL (0.40-0.90); GLUCOSE 150 MG/DL (70-104); MAGNESIUM 2.1 MG/DL (1.5-2.4); POTASSIUM 3.7 MMOL/L (3.5-5.1); SODIUM 147 MMOL/L (135-145); TOTAL CARBON DIOXIDE 25.3 MMOL/L (24-32); eGFR 32 ML/MIN
--- NOTE | 2019-09-13 06:23 | NUR ---
report given and patient care assumed by Angelika Cross.
--- NOTE | 2019-09-13 06:24 | NUR ---
Orientee documentation: I have reviewed and agree with all interventions, assessments performed and documented by Pasquale CARY . Orientee Medication Administration: For this medication-pass time frame, all medication were reviewed, dispensed, administered and documented per hospital policy by Pasquale CARY.
--- NOTE | 2019-09-13 06:46 | NUR ---
Patient in room ICU 2043. I have received report from LUIS DANIEL Dsouza and had the opportunity to ask questions and assume patient care.
[2019-09-13] MEDS: budesonide 0.5mg/2ml UD nebule IH SCH ×2 (07:01→19:24)
[2019-09-13] MEDS: albuterol 2.5 MG/3 ML nebule NEB PRN ×2 (07:01→11:13)
[2019-09-13] MEDS: iron sucrose complex injection 200 MG in normal saline 100ml IV soln 100 ML IV SCH (07:30)
[2019-09-13] MEDS: CefTRIAXone/D5W-Rocephin 1gm 50 ML IV SCH (07:30)
[2019-09-13] MEDS: pantoprazole 40 MG vial IV SCH ×2 (07:30→20:39)
[2019-09-13] MEDS: furosemide 40mg/4ml inj IV SCH (07:30)
[2019-09-13] MEDS: lactobacillus rhamnosus 10,000 MMU CELLS/CAPSULE PO SCH ×2 (07:31→20:39)
[2019-09-13] MEDS: K and/or MAG REPLACEMENT MC SCH ×2 (08:00→20:40)
[2019-09-13] MEDS ORDERED: MIDAZolam 5mg/5ml vial ONE (08:37)
[2019-09-13] MEDS ORDERED: fentaNYL/PF 50MCG/1 ML 2ML syringe ONE (08:37)
[2019-09-13 08:59] LABS: ANISOCYTOSIS 3+; LARGE PLATELETS FEW; MICROCYTOSIS 2+; NUCLEATED RED BLOOD CELLS 4 /100WBC (0-0); PLATELET ESTIMATE INCREASED; TOTAL CELLS COUNTED 100
[2019-09-13 09:01] LABS: HYPOCHROMASIA 2+
[2019-09-13 09:56] LABS: TROPONIN I 0.49 NG/ML (0.0-0.05)
[2019-09-13] MEDS ORDERED: magnesium 4gm in 100ml NS 100 ML IV PRN (14:20)
[2019-09-13] MEDS ORDERED: potassium Cl 20 mEq SR tablet PO PRN (14:20)
[2019-09-13] MEDS ORDERED: potassium CL 10mEq/100ml bag 100 ML IV PRN (14:20)
[2019-09-13] MEDS ORDERED: magnesium Cl slow-release 64mg tablet PO PRN (14:20)
[2019-09-13] MEDS ORDERED: potassium Cl 20 mEq SR tablet ONE (14:46)
[2019-09-13] MEDS: potassium Cl 20 mEq SR tablet PO PRN ×2 (14:47→20:39)
--- NOTE | 2019-09-13 18:15 | NUR ---
Problems reprioritized. Patient report given, questions answered & plan of care reviewed with LUIS DANIEL Hdez.
--- NOTE | 2019-09-13 21:30 | NUR ---
Pt arrived at the unit @ 2130 via w/c; on tele monitor # 49. Pt belongings are with the pt ( 1 pair of socks, cellphone & silver color bracelet only; no DL, no phone construction engineering manager seen - which Mary SHELTON, stated that pt has ). Transfer was tolerated well.
[2019-09-13] MEDS: levoFLOXACIN-Levaquin 250mg/D5 50 ML IV SCH (21:52)
[2019-09-13] MEDS: acetaminophen 325mg tablet PO PRN (23:43)
[2019-09-14] MEDS: potassium Cl 20 mEq SR tablet PO PRN (00:33)
[2019-09-14] MEDS: methylPREDNISolone sod succ/PF 40mg inj. IV SCH ×4 (01:34→19:18)
[2019-09-14 02:00] VITALS: BP 146/75
[2019-09-14] MEDS: LORazepam 2 mg/ml vial IV PRN (02:44)
[2019-09-14] MEDS: levalbuterol 1.25mg/0.5ml nebule IH SCH ×6 (03:02→23:27)
[2019-09-14 06:00] VITALS: BP 138/67
--- NOTE | 2019-09-14 06:20 | NUR ---
Problems reprioritized. Patient report given, questions answered & plan of care reviewed with LUIS DANIEL Wilson.
--- NOTE | 2019-09-14 06:25 | NUR ---
Patient in room PCU 3017. I have received report from LUIS DANIEL Hdez and had the opportunity to ask questions and assume patient care.
[2019-09-14] MEDS: K and/or MAG REPLACEMENT MC SCH ×2 (08:00→19:18)
[2019-09-14] MEDS ORDERED: levoFLOXACIN-Levaquin 500mg/D5 100 ML IV SCH (08:00)
[2019-09-14] MEDS: CefTRIAXone/D5W-Rocephin 1gm 50 ML IV SCH (08:10)
[2019-09-14] MEDS: budesonide 0.5mg/2ml UD nebule IH SCH ×2 (08:26→19:05)
[2019-09-14] MEDS: pantoprazole 40 MG vial IV SCH ×2 (09:06→19:17)
[2019-09-14] MEDS: iron sucrose complex injection 200 MG in normal saline 100ml IV soln 100 ML IV SCH (09:12)
[2019-09-14] MEDS: lactobacillus rhamnosus 10,000 MMU CELLS/CAPSULE PO SCH ×2 (09:15→19:18)
[2019-09-14 10:15] LABS: HEMATOCRIT 27.1 % (35.0-45.0); HEMOGLOBIN 8.2 g/dl (12.0-16.0); MEAN CORPUSCULAR HEMOGLOBIN 19.2 PG (27.0-31.0); MEAN CORPUSCULAR HGB CONC 30.1 g/dL (33.0-36.5); MEAN CORPUSCULAR VOLUME 63.6 FL (78-98); MEAN PLATELET VOLUME 8.8 FL (7.4-10.4); PLATELET COUNT 541 X10'3 (140-440); RED BLOOD COUNT 4.27 X10'6 (4.20-5.60); RED CELL DISTRIBUTION WIDTH 36.4 % (11.5-14.5); WHITE BLOOD COUNT 16.6 X10'3 (4.5-11.0)
[2019-09-14 10:22] LABS: ALANINE AMINOTRANSFERASE 20 U/L (12-78); ALBUMIN 2.4 G/DL (3.4-5.0); ALBUMIN/GLOBULIN RATIO 0.6 (1.1-1.5); ALKALINE PHOSPHATASE 155 IU/L (46-116); ANION GAP 11 (8-16); ASPARTATE AMINO TRANSFERASE 18 U/L (10-37); BILIRUBIN,TOTAL 0.3 MG/DL (0.1-1.0); BLOOD UREA NITROGEN 34 MG/DL (7-18); BUN/CREATININE RATIO 23.4 (6.6-38.0); CALCIUM 8.3 MG/DL (8.5-10.1); CHLORIDE 110 MMOL/L (99-107); CREATININE 1.45 MG/DL (0.40-0.90); GLUCOSE 197 MG/DL (70-104); MAGNESIUM 2.1 MG/DL (1.5-2.4); POTASSIUM 3.8 MMOL/L (3.5-5.1); SODIUM 146 MMOL/L (135-145); TOTAL CARBON DIOXIDE 24.9 MMOL/L (24-32); TOTAL PROTEIN 6.3 G/DL (6.4-8.2); eGFR 35 ML/MIN
[2019-09-14 11:00] VITALS: BP 130/71
[2019-09-14 11:07] LABS: TOTAL CELLS COUNTED 200
[2019-09-14 11:10] LABS: ANISOCYTOSIS 3+; HYPOCHROMASIA 1+; MICROCYTOSIS 2+; NUCLEATED RED BLOOD CELLS 2 /100WBC (0-0); PLATELET ESTIMATE INCREASED
[2019-09-14 11:12] LABS: POLYCHROMASIA 1+; TEAR DROP CELLS FEW
[2019-09-14 11:13] LABS: SCHISTOCYTES 2+
[2019-09-14 15:00] VITALS: BP 109/57
--- NOTE | 2019-09-14 16:20 | NUR ---
Initial: Pt presented with c/o SOB, admit for COPD with exacerbation and further evaluation of microcytic anemia with guaiac positive stool. Pt with PRN BiPAP for acute respiratory failure, s/p rapid response 09/11. Pt briefly transferred to ICU, now on PCU. Pt currently documented as A/O x 3 and confused. Pt on regular diet documented with 100% PO intake at dinner 09/09 and breakfast 09/10 however with 0-25% PO intake all surrounding meals not meeting nutrient needs. LBM 09/08. Poor PO intake likely r/t constipation and SOB. D/w dietary to send prunes and prune juice with next meal to assist with bowel regularity. Will continue to follow closely and monitor need for further nutrition intervention. Recommendations: 1) Continue regular diet; encourage PO intake 2) Monitor need for ONS 3) Routine bowel care 4) Scaled wts per rx Addendum: 09/14/19 at [address] Amended: Links added.
--- NOTE | 2019-09-14 16:49 | NUR ---
Patient talked to the daughter of Karyn. I dailed the number for the patient which is the same number Miryam called me on. Updated POA on patient today. Patient has her cell-phone which is now charged and patient has had a patient phone since beginning of the shift, which is the one I was to dial the POA's number and the patient was talking to her. Patient says it was the daughter of the CAT that she was talking when the lady answered. POA claims she has not heard anything about the patient. I tried calling the POA's number but received the voice mail and that is was full. SCOUTJohnathan also worried about missing belongings. Let her know I looked through her room and talked to ER and the ICU to look for her bag. I let her know that and that they both did not find anything of the patient's. Addendum: 09/14/19 at 1707 by Steve Villegas RN POA called back and I was able to transfer her to patient. Patient picked up.
--- NOTE | 2019-09-14 17:31 | NUR ---
Per CAT I talked with the patient about what brought her here. Patient understand most of it including the GIB and the kidneys.
--- NOTE | 2019-09-14 17:33 | NUR ---
PAGER ID: [phone] MESSAGE: [id number] Sveta Diaz: No BM since 09/08. Can we order her something to help her have a BM? LUIS DANIEL Wilson Ext [phone]
[2019-09-14 18:00] VITALS: BP 139/78
--- NOTE | 2019-09-14 18:15 | NUR ---
Problems reprioritized. Patient report given, questions answered & plan of care reviewed with LUIS DANIEL Hdez.
[2019-09-14] MEDS: normal saline 1000ml 1,000 ML IV SCH (19:30)
[2019-09-14 19:31] LABS: ABG BASE EXCESS 0.1 mmol/L (-2.0-3.0); ABG HCO3 23.8 mmol/L (22.0-26.0); ABG OXYGEN SATURATION 96.2 % (95-98); ABG PCO2 (T) 34.8 mmHg (35.0-45.0); ABG PO2 (T) 86.6 mmHg (83-108); ALLEN'S TEST POSITIVE; FCOHb 0.3 % (0.5-1.5); FLOW 3 L/min; FMetHb 0.2 % (0.3-1.12); FO2Hb 95.7 % (94-100); PATIENT TEMPERATURE 36.8; TOTAL HEMOGLOBIN 9.4 G/dl (12.0-16.0)
[2019-09-14 22:00] VITALS: BP 137/73
[2019-09-14] MEDS: acetaminophen 325mg tablet PO PRN (23:12)
[2019-09-15] VITALS (9 sets, daily range): BP systolic 130–186; BP diastolic 66–96
[2019-09-15] MEDS: levalbuterol 1.25mg/0.5ml nebule IH SCH ×5 (02:31→20:13)
--- NOTE | 2019-09-15 06:00 | NUR ---
Patient in room PCU 3017. I have received report from Belkis CARY and had the opportunity to ask questions and assume patient care.
--- NOTE | 2019-09-15 06:10 | NUR ---
Problems reprioritized. Patient report given, questions answered & plan of care reviewed with Kin/LUIS DANIEL Ogden.
--- NOTE | 2019-09-15 06:12 | NUR ---
Patient in room PCU 3017. I have received report from LUIS DANIEL Hdez and had the opportunity to ask questions and assume patient care.
[2019-09-15 06:44] LABS: HEMOGLOBIN 7.8 g/dl (12.0-16.0)
[2019-09-15 06:47] LABS: HEMATOCRIT 25.7 % (35.0-45.0); MEAN CORPUSCULAR HEMOGLOBIN 19.5 PG (27.0-31.0); MEAN CORPUSCULAR HGB CONC 30.4 g/dL (33.0-36.5); MEAN CORPUSCULAR VOLUME 64.3 FL (78-98); MEAN PLATELET VOLUME 9.2 FL (7.4-10.4); PLATELET COUNT 499 X10'3 (140-440); RED BLOOD COUNT 3.99 X10'6 (4.20-5.60); WHITE BLOOD COUNT 15.7 X10'3 (4.5-11.0)
[2019-09-15 07:02] LABS: MAGNESIUM 2.1 MG/DL (1.5-2.4)
[2019-09-15] MEDS: methylPREDNISolone sod succ/PF 40mg inj. IV SCH (07:21)
[2019-09-15] MEDS: iron sucrose complex injection 200 MG in normal saline 100ml IV soln 100 ML IV SCH (07:28)
[2019-09-15] MEDS: pantoprazole 40 MG vial IV SCH ×2 (07:36→20:14)
[2019-09-15 07:39] LABS: ANISOCYTOSIS 3+; HYPOCHROMASIA 1+; MICROCYTOSIS 2+; NUCLEATED RED BLOOD CELLS 2 /100WBC (0-0); PLATELET ESTIMATE INCREASED; TOTAL CELLS COUNTED 100
[2019-09-15 07:40] LABS: LARGE PLATELETS FEW; POLYCHROMASIA FEW; SCHISTOCYTES FEW; TEAR DROP CELLS FEW
[2019-09-15] MEDS: lactobacillus rhamnosus 10,000 MMU CELLS/CAPSULE PO SCH ×2 (07:41→20:13)
[2019-09-15] MEDS: K and/or MAG REPLACEMENT MC SCH ×2 (08:00→20:00)
[2019-09-15] MEDS: budesonide 0.5mg/2ml UD nebule IH SCH ×2 (09:08→20:14)
[2019-09-15] MEDS ORDERED: methylPREDNISolone sod succ/PF 40mg inj. IV SCH (10:20)
--- NOTE | 2019-09-15 10:34 | NUR ---
Cardoza catheter discontinued, as she no longer met protocol. 7ml pulled via lure lock syringe, deflating balloon. Catheter tip intact. no complications.
[2019-09-15 10:37] LABS: ALBUMIN 2.3 G/DL (3.4-5.0); ANION GAP 13 (8-16); BLOOD UREA NITROGEN 28 MG/DL (7-18); BUN/CREATININE RATIO 22.6 (6.6-38.0); CALCIUM 8.4 MG/DL (8.5-10.1); CHLORIDE 112 MMOL/L (99-107); CREATININE 1.24 MG/DL (0.40-0.90); GLUCOSE 139 MG/DL (70-104); SODIUM 148 MMOL/L (135-145); TOTAL CARBON DIOXIDE 23.5 MMOL/L (24-32); eGFR 42 ML/MIN
[2019-09-15] MEDS: docusate sod 100mg capsule PO SCH ×2 (10:47→20:00)
[2019-09-15] MEDS: CefTRIAXone/D5W-Rocephin 1gm 50 ML IV SCH (10:48)
[2019-09-15 12:19] LABS: % IRON SATURATION 90 % (11-46); IRON 428 UG/DL (49-151); TOTAL IRON BINDING CAPACITY 474 UG/DL (259-388)
--- NOTE | 2019-09-15 13:41 | NUR ---
O2 Sat at rest on room air:_93_% If below 89%: Recovery O2 Sat at rest on ___LPM:___%:___% via (mask/nasal cannula, etc..) No further documentation is necessary. If O2 Sat did not drop below 89% on room air,ambulate patient on room air. O2 Sat while ambulating on room air:_87% Recovery O2 Sat while ambulating on 1_LPM:_92_% No further documentation is necessary. If patient does not drop below 89% while ambulating, he/she does not qualify for home O2.
[2019-09-15] MEDS: acetaminophen 325mg tablet PO PRN (14:42)
[2019-09-15] MEDS ORDERED: fentaNYL/PF 50MCG/1 ML 2ML syringe ONE (15:58)
[2019-09-15] MEDS ORDERED: LIDOcaine Viscous 15ml cup ONE (15:59)
[2019-09-15] MEDS ORDERED: MIDAZolam 5mg/5ml vial ONE (15:59)
[2019-09-15] MEDS: normal saline 1000ml 1,000 ML IV SCH (16:20)
--- NOTE | 2019-09-15 16:23 | NUR ---
Pt taken down to GI lab for EGD
--- NOTE | 2019-09-15 18:00 | NUR ---
Orientee documentation: I have reviewed and agree with all interventions, assessments performed and documented by Melvi Palacios RN.
--- NOTE | 2019-09-15 18:21 | NUR ---
Problems reprioritized. Patient report given, questions answered & plan of care reviewed with LUIS DANIEL Vernon.
--- NOTE | 2019-09-15 18:22 | NUR ---
Problems reprioritized. Patient report given, questions answered & plan of care reviewed with Patricia RN.
--- NOTE | 2019-09-15 18:33 | NUR ---
Patient in room PCU 3017. I have received report from [place] and MelviRN and had the opportunity to ask questions and assume patient care.
[2019-09-15] MEDS: levoFLOXACIN-Levaquin 250mg/D5 50 ML IV SCH (20:14)
[2019-09-15] MEDS ORDERED: levoFLOXACIN 250mg tablet PO SCH (21:00)
[2019-09-16] MEDS: levalbuterol 1.25mg/0.5ml nebule IH SCH ×5 (00:05→14:35)
[2019-09-16] MEDS: acetaminophen 325mg tablet PO PRN ×2 (00:37→11:15)
[2019-09-16 02:00] VITALS: BP 110/63
[2019-09-16 06:00] VITALS: BP 166/70
--- NOTE | 2019-09-16 06:18 | NUR ---
Problems reprioritized. Patient report given, questions answered & plan of care reviewed with LUIS DANIEL Paul.
--- NOTE | 2019-09-16 06:53 | NUR ---
Patient in room PCU 3017. I have received report from LUIS DANIEL PRINCE and had the opportunity to ask questions and assume patient care.
[2019-09-16] MEDS: K and/or MAG REPLACEMENT MC SCH (08:00)
[2019-09-16] MEDS: budesonide 0.5mg/2ml UD nebule IH SCH (08:09)
--- NOTE | 2019-09-16 08:59 | NUR ---
PATIENT HAD A 5 BEAT RUN OF V-TACH, ASSESSED PATIENT, PATIENT ASYMPTOMATIC. PAGED AWAITING CALL BACK
[2019-09-16] MEDS: docusate sod 100mg capsule PO SCH (09:09)
[2019-09-16] MEDS: lactobacillus rhamnosus 10,000 MMU CELLS/CAPSULE PO SCH (09:09)
[2019-09-16] MEDS: CefTRIAXone/D5W-Rocephin 1gm 50 ML IV SCH (09:10)
[2019-09-16 09:45] LABS: ALANINE AMINOTRANSFERASE 16 U/L (12-78); ALBUMIN 2.2 G/DL (3.4-5.0); ALBUMIN/GLOBULIN RATIO 0.7 (1.1-1.5); ALKALINE PHOSPHATASE 123 IU/L (46-116); ANION GAP 11 (8-16); ASPARTATE AMINO TRANSFERASE 15 U/L (10-37); BILIRUBIN,TOTAL 0.2 MG/DL (0.1-1.0); BLOOD UREA NITROGEN 18 MG/DL (7-18); BUN/CREATININE RATIO 17.3 (6.6-38.0); CHLORIDE 112 MMOL/L (99-107); CREATININE 1.04 MG/DL (0.40-0.90); GLUCOSE 105 MG/DL (70-104); POTASSIUM 3.3 MMOL/L (3.5-5.1); SODIUM 147 MMOL/L (135-145); TOTAL CARBON DIOXIDE 24.5 MMOL/L (24-32); TOTAL PROTEIN 5.4 G/DL (6.4-8.2); eGFR 52 ML/MIN
[2019-09-16 09:49] LABS: HEMATOCRIT 26.6 % (35.0-45.0); MEAN CORPUSCULAR HGB CONC 30.3 g/dL (33.0-36.5); MEAN PLATELET VOLUME 8.5 FL (7.4-10.4); PLATELET COUNT 460 X10'3 (140-440); RED BLOOD COUNT 4.03 X10'6 (4.20-5.60); RED CELL DISTRIBUTION WIDTH 35.9 % (11.5-14.5)
[2019-09-16] MEDS ORDERED: ALBU2.5V7 NEB (09:59)
[2019-09-16] MEDS ORDERED: LEVO500T89 PO (09:59)
[2019-09-16] MEDS ORDERED: BUDE0.5A3 IH (09:59)
[2019-09-16] MEDS ORDERED: PANT40TA4 PO (10:00)
[2019-09-16] MEDS: iron sucrose complex injection 200 MG in normal saline 100ml IV soln 100 ML IV SCH (10:19)
[2019-09-16] MEDS: pantoprazole 40 MG vial IV SCH (10:22)
[2019-09-16 11:00] VITALS: BP 144/75
[2019-09-16] MEDS: potassium Cl 20 mEq SR tablet PO PRN (11:14)
[2019-09-16 12:17] LABS: NUCLEATED RED BLOOD CELLS 1 /100WBC (0-0); TOTAL CELLS COUNTED 100
[2019-09-16 12:22] LABS: ANISOCYTOSIS 3+; HYPOCHROMASIA 1+; MICROCYTOSIS 2+; PLATELET ESTIMATE INCREASED; SCHISTOCYTES FEW; TEAR DROP CELLS FEW
[2019-09-16 12:23] LABS: POLYCHROMASIA 1+
[2019-09-16] MEDS ORDERED: PRED10TA23 PO (15:12)
[2019-09-16] MEDS ORDERED: ACET-1008 PO (15:12)
--- NOTE | 2019-09-16 15:20 | NUR ---
PT CAT SAENZ REFUSING TO COME TO TICKET SALES AGENT PT. HE STATES SHE WILL NOT UNTIL SHE SPEAKS TO DR GRULLON, GETS AN RX FOR ATIVAN AND SOME NON NARCOTIC OR ADDICTIVE PAIN RELIEVERS. SHE WILL NOT COME TO HOSPITAL TO SPEAK TO DR GRULLON IN PERSON. SHE IS AFRAID WE WILL JUST "THROW D/C PAPERS IN HER FACE". DR GRULLON TO RN STATION. WE HAD A CONFERENCE CALL WITH LETTY, DR GRULLON AND MYSELF. PT VOICED HER DEMAND FOR A PAIN RELIEVER. DR GRULLON AND I INFORMED HER THAT PT IS COMFORTABLE ON TYLENOL FOR PAIN CONTROL HERE IN HOSPITAL. DR GRULLON REVIEWED D/C INSTRUCTIONS WITH LETTY REGARDING NSAID AVOIDANCE. LETTY STATED SHE FELT THE COST OF TYLENOL OVER THE COUNTER WAS HARD TO AFFORD. I INFORMED HER THAT SHE COULD TICKET SALES AGENT [facility] AT THE [facility] STORE. LETTY WAS UPSET OVER THE INABILITY TO ACCESS MEDICAL RECORDS. I REVIEWED THE POLICY OF THE HOSPITAL TO RELEASE MEDICAL RECORDS ONLY AFTER PT WAS DISCHARGED. 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 I INFORMED HER THAT ON WEDNESDAY SHE COULD CALL THE HOSPITAL AND INFORM MEDICAL RECORDS WHAT INFORMATION SHE REQUESTS. SHE STATED THAT SHE WOULD ALSO BE CALLING ADMINISTRATION. SHE INFORMED ME THAT SHE WOULD BE HERE AROUND 1630 FOR TICKET SALES AGENT PT. Addendum: 09/16/19 at 1625 by Isadora Flores RN Amended: Links added.
--- NOTE | 2019-09-16 16:39 | NUR ---
LETTY IS NOW REFUSING TO MICROWAVE SUPERVISOR PT UNTIL SHE HAS A LIST OF ITEMS THAT WERE LOST. I EXPLAINED TO HER THAT EVERY TRADER FIXED INCOME ON PCU, THE PCU DIRECTOR, ALL CASE MANAGEMENT AND RIDES ATTENDANT KNOW ABOUT THE ITEMS THAT ARE MISSING. NO ONE IS GOING TO PUSH THIS UNDER THE RUG. SHE IS UNYIELDING IN HER DEMANDS. I HAVE TRANSFER HER CALL TO RIDES ATTENDANT GEREMIAS. Addendum: 09/16/19 at 1643 by Isadora Flores RN Amended: Links added.
--- NOTE | 2019-09-16 16:52 | NUR ---
LETTY HAS SPOKEN TO RESTAURANT COOK. RESTAURANT COOK HAS INFORMED LETTY THAT SHE CA NOT ACCESS THOSE RECORDS. LETTY REMAINS STEAD FAST THAT SHE WILL NOT QUALITY CONTROL SUPERVISOR PT UNTIL SHE HAS A NOTE STATING THAT ITEMS WERE LOST HERE, RESTAURANT COOK INFORMED ME THAT SHE WILL PLACE A NOTE IN THE CHART AND PRINT IT OUT FOR HER. THIS WILL TAKE SOME TIME RESTAURANT COOK IS ATTENDING TO OTHER DUTIES AT THIS TIME. Addendum: 09/16/19 at 1656 by Isadora Flores RN Amended: Links added.
--- NOTE | 2019-09-16 17:51 | NUR ---
INTERACTIONS WITH FAMILY MEMBER: PATIENT'S FAMILY MEMBER, LETTY, SEEMED VERY CONCERNED ABOUT PATIENT'S CARE AND WELL BEING BUT WHEN ASKED WHAT PHARMACY PATIENT GET THEIR MEDS, LETTY DID NOT KNOW. ALSO WHEN COMMUNICATING ABOUT PATIENT'S DISCHARGE LETTY SEEMED TO BE STALLING AND WANTING MEDS, THEN A LIST OF LOST ITEMS BEFORE PICKING PATIENT UP. THE DR ADDRESSED THE MEDS AND WHILE WAS TALKING TO LETTY ABOUT WHAT PAIN MEDS WERE TO BE GIVEN, ALVAJohnathan DID NOT SEEM TO UNDERSTAND THAT TYLENOL WAS WORKING FOR THE PATIENT AND WAS PUSHING FOR SOMETHING ELSE. THE DR AND CHARGE WERE EVENTUALLY ABLE TO EDUCATE LETTY ENOUGH TO UNDERSTAND THAT TYLENOL HAD BEEN WORKING FOR THE PATIENT'S PAIN AND WOULD CONTINUE TO WORK. I WAS A WITNESS TO THIS PART OF THEIR CALL. SOMETHING DOESN'T SEEM TO BE RIGHT WITH THE PATIENT'S CARE FROM LETTY. Addendum: 09/16/19 at 1911 by Beverly Kim RN PATIENT'S FAMILY MEMBER, LETTY, STATED THAT THE PATIENT WAS MISSING CLOTHES, AN ID AND GLASSES. THE ID AND GLASSES WERE NOT ON THE BELONGINGS LIST NOR WAS THE PATIENT SEEN WEARING GLASSES DURING THEIR STAY
--- NOTE | 2019-09-16 17:51 | NUR ---
PATIENT STABLE AND APPROPRIATE FOR DISCHARGE, IV TAKEN OUT AND TELE REMOVED, [facility], EDUCATION GIVEN, MOST BELONGINGS SENT WITH PATIENT, LIST OF MISSING ITEMS GIVEN TO FAMILY MEMBER, PATIENT TAKEN DOWN IN WHEELCHAIR TO [facility] WHERE FAMILY MEMBER WILL TAKE PATIENT HOME. Addendum: 09/16/19 at 1909 by Beverly Kim RN IT TECHNICAL SUPPORT SPECIALIST AND BRACELET FOUND IN ROOM PATIENT'S FAMILY CAME AND PICKED THEM UP
[2019-09-17] MEDS ORDERED: methylPREDNISolone sod succ/PF 40mg inj. IV SCH (08:00)
--- NOTE | 2019-09-25 11:33 | NUR ---
Case Management DC follow up: pt phone "not set up to receive vm"
== END 2019-09-16 17:53 | disposition home or self-care (01) | DRG 917 ==
LOC: ER 11:43 → ED HOLD 14:08 → EDBEDREQ 15:00 → PCU 3S 15:46 → ICU 2S 09-12 17:20 → PCU 3S 09-13 21:30
PROVIDERS: ADMIT Internal Medicine; ATTEND Internal Medicine
PROC: 30233N1 Transfusion of Nonautologous Red Blood Cells into Peripheral Vein, Percutaneous Approach (ICD-10-PCS; 2019-09-09)
PROC: 5A09357 Assistance with Respiratory Ventilation, Less than 24 Consecutive Hours, Continuous Positive Airway Pressure (ICD-10-PCS; 2019-09-09)
PROC: 5A09357 Assistance with Respiratory Ventilation, Less than 24 Consecutive Hours, Continuous Positive Airway Pressure (ICD-10-PCS; 2019-09-11)
PROC: 5A09357 Assistance with Respiratory Ventilation, Less than 24 Consecutive Hours, Continuous Positive Airway Pressure (ICD-10-PCS; 2019-09-12)
PROC: 5A09357 Assistance with Respiratory Ventilation, Less than 24 Consecutive Hours, Continuous Positive Airway Pressure (ICD-10-PCS; 2019-09-13)
PROC: 0DB68ZX Excision of Stomach, Via Natural or Artificial Opening Endoscopic, Diagnostic (ICD-10-PCS; principal; 2019-09-15)
DX: T39.091A Poisoning by salicylates, accidental (unintentional), initial encounter (principal); I21.A1 Myocardial infarction type 2; J96.00 Acute respiratory failure, unspecified whether with hypoxia or hypercapnia; K25.4 Chronic or unspecified gastric ulcer with hemorrhage; D62 Acute posthemorrhagic anemia; J44.1 Chronic obstructive pulmonary disease with (acute) exacerbation; E87.2 Acidosis; N17.9 Acute kidney failure, unspecified; D50.9 Iron deficiency anemia, unspecified; Z20.828 Contact with and (suspected) exposure to other viral communicable diseases; I48.91 Unspecified atrial fibrillation; N18.3 Chronic kidney disease, stage 3 (moderate); Z79.82 Long term (current) use of aspirin; Z87.891 Personal history of nicotine dependence; Y92.89 Other specified places as the place of occurrence of the external cause
CPT/HCPCS: 36415; 36430; 36600; 43239; 70450; 71045; 71046; 76937; 80048; 80053; 80076; 80329; 82272; 82803; 83520; 83540; 83550; 83605; 83735; 83880; 84132; 84145; 84484; 85018; 85025; 85027; 85576; 85610; 85730; 86885; 86900; 86901; 86920; 87081; 87635; 88305; 93005; 93306; 94640; 94660; 94760; 96374; 96375; 97110; 97116; 97161; 97530; 99152; 99291; A4620; C9113; G0378; J0360; J0696; J1756; J1940; J1956; J2060; J2250; J2270; J2920; J2930; J3010; J3480; J7030; J7040; J7614; J7626; P9016